=== PATIENT | female | born 1995 | race Caucasian/White ===

== ENCOUNTER → 2022-03-01 09:15 | Outpatient (CLI) | payer BC, SELFPAY ==
--- NOTE | ~2022-03-01 | US_ITS ---
US breast BI complete DATE: 03/01/2022 09:40 INDICATION: Right breast lump. Fibrocystic changes of left breast. TECHNIQUE: Real-time and color flow imaging of both complete breasts including all 4 quadrants and berrios bareolar area COMPARISON: None FINDINGS: Right breast: 11:00 2.5 cm from nipple: Superficial parallel circumscribed hypoechoic 14.9 x 7.6 x 12 mm heterogene ous hypoechoic solid lesion with some internal vascularity on color flow imaging, with some through t ransmission and no posterior shadowing. This most likely benign, probably a fibroadenoma. No suspicious mass or shadowing of the right breast is detected. Left breast: No suspicious mass or shadowing or other significant sonographic finding IMPRESSION: BI-RADS Category 3: Probably benign finding Recommendation: 6 month targeted right breast ultrasound follow-up at 11:00 2.5 cm from nipple Reviewed, dictated and finalized at [facility]. Reviewed, dictated and finalized at [facility].
== END ==
DX: N63.10 Unspecified lump in the right breast, unspecified quadrant (principal); R92.8 Other abnormal and inconclusive findings on diagnostic imaging of breast
CPT/HCPCS: 76641

== ENCOUNTER 2022-09-20 00:29 | Emergency (ER) | payer BC, SELFPAY ==
[2022-09-20] VITALS (7 sets, daily range): BP systolic 97–110; BP diastolic 55–68; PULSE 74–97; RESP 15–22; TEMP 36.7; O2SAT 98–100
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
--- NOTE | 2022-09-20 00:45 | PC.NURSE ---
Blood glucose 156
[2022-09-20 00:47] LABS: Glucose Point of Care 156 mg/dl (65-105)
[2022-09-20 01:05] LABS: Appearance Urine Clear (Clear); Bilirubin Urine Negative (Negative); Blood Urine 2+ (Negative); Color Urine Yellow (Yellow); Glucose Urine UA Negative (Negative); Ketones Urine Trace mg/dL (Negative); Leukocyte Esterase Ur Negative LEU/UL (Negative); Nitrate Urine Negative (Negative); Protein Urine 1+ mg/dL (Negative); Specific Grav Ur 1.015 (1.001-1.035); Urobilinogen Urine 0.2 mg/dL (<2.0)
[2022-09-20] MEDS: HALOPERIDOL LACTATE 5 MG/ML VIAL IM (01:05)
[2022-09-20 01:15] LABS: Add Urine Microscopic? YES; Basophils Absolute Auto 0.1 K/mm3 (0.0-0.1); Basophils Percent Auto 0.9 % (0.2-1.2); Eosinophils Absolute Auto 0.3 K/mm3 (0-0.3); Eosinophils Percent Auto 2.1 % (0-4.4); Hematocrit 41.1 % (37.0-47.0); Immature Granulocyte Absolute 0.06 K/mm3 (0.00-0.031); Immature Granulocyte Percent A 0.5 % (0-0.5); Lymphocytes Absolute Auto 4.16 K/mm3 (0.9-3.2); Lymphocytes Percent Auto 34.3 % (18.3-44.2); Mean Corpuscular HGB Conc 34.1 g/dl (32-36); Mean Corpuscular Hemoglobin 31.5 pg (26-34); Mean Corpuscular Volume 92.4 fl (80-100); Mean Platelet Volume 9.3 fl (7.4-10.4); Monocytes Absolute Auto 0.7 K/mm3 (0.1-0.6); Monocytes Percent Auto 5.4 % (2.6-8.5); Neutrophils Absolute Auto 6.9 K/mm3 (1.3-6.7); Neutrophils Percent Auto 56.8 % (45.5-73.1); Platelet Count Result 359 k/mm3 (150-375); RBC Urine 0-2 /hpf (0-2); Red Blood Count 4.45 M/mm3 (4.2-5.4); Red Cell Distribution Width 12.5 % (11.5-14.5); WBC Urine 0-3 /hpf; White Blood Count 12.1 K/mm3 (4.5-10.0)
[2022-09-20 01:19] LABS: Alanine Aminotransferase 27 U/L (6-35); Albumin Level 5.1 g/dL (3.5-5.1); Alkaline Phosphatase 82 U/L (38-126); Anion Gap 17 mmol/L (8-16); Aspartate Amino Transferase 136 U/L (14-36); Bilirubin,Total 0.3 mg/dL (0.2-1.3); Blood Urea Nitrogen 8 mg/dL (7-17); Calcium 8.9 mg/dL (8.4-10.2); Carbon Dioxide 22 mmol/L (22-30); Chloride 103 mmol/L (98-107); Estimated CRCL calculation 111 ml/min; Estimated Glomerular Filt Rate > 60; Glucose 141 mg/dL (65-110); Potassium 3.6 mmol/L (3.4-5.0); Sodium 142 mmol/L (137-145)
[2022-09-20 01:29] LABS: Amphetamine Screen Urine Negative (Negative); Barbiturate Screen Urine Negative (Negative); Benzodiazepines Screen Urine Negative (Negative); Cannabinoid Screen Urine Positive (Negative); Cocaine Screen Urine Negative (Negative); Methadone Screen Urine Negative (Negative); Opiate Screen Urine Negative (Negative); Phencyclidine Screen Urine Negative (Negative)
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
[2022-09-20 01:38] LABS: Ethanol 269 mg/dL (<10)
[2022-09-20] MEDS: KETAMINE HCL (*CRX) 500 MG/10 ML VIAL 50 MG IV PUSH (01:51)
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
--- NOTE | 2022-09-20 04:06 | PC.NURSE ---
patient awake at this time phone number for dexter leblanc given and message left [phone]
--- NOTE | 2022-09-20 04:09 | PC.NURSE ---
dexter leblanc returned call and is on her way to the er
== END 2022-09-20 04:46 | disposition home or self-care (01) ==
PROVIDERS: Emergency Provider Emergency Medicine
DX: F10.129 Alcohol abuse with intoxication, unspecified (principal); Y90.8 Blood alcohol level of 240 mg/100 ml or more; S40.022A Contusion of left upper arm, initial encounter; S40.021A Contusion of right upper arm, initial encounter; S80.12XA Contusion of left lower leg, initial encounter; S80.11XA Contusion of right lower leg, initial encounter; M16.0 Bilateral primary osteoarthritis of hip; V49.9XXA Car occupant (driver) (passenger) injured in unspecified traffic accident, initial encounter
CPT/HCPCS: 36415; 51701; 70450; 71045; 72125; 72170; 73030; 80053; 80307; 81001; 81025; 82948; 85025; 96372; 96374; 99284; 99285; J1630